=== PATIENT | male | born 1995 | race Caucasian/White ===

== ENCOUNTER 2017-05-26 23:31 | Emergency (ER) | payer BC, OTHER ==
--- NOTE | 2017-05-27 00:17 | EDPHY ---
H & P Stated Complaint: L knee pain and swelling, unknown reason Time Seen by Provider: 05/26/17 23:41 HPI/ROS: HPI The patient presents with left knee pain. This is been present for the last several hours and is getting progressively worse. He was moving into a house and was bending his knees to pick something up and had a popping sensation. He has had progressive worsening knee pain and swelling ever since. He now is unable to put pressure on the knee without severe pain. He has no prior history of knee injury. REVIEW OF SYSTEMS Constitutional: No fever, no chills. Eyes: No discharge. ENT: No sore throat. Cardiovascular: No chest pain, no palpitations. Respiratory: No cough, no shortness of breath. Gastrointestinal: No abdominal pain, no vomiting. Genitourinary: No hematuria. Musculoskeletal: No back pain. Skin: No rashes. Neurological: No headache. PMHx: Healthy Soc Hx: College student, from [place] PHYSICAL General Appearance: Alert, no distress Eyes: Pupils equal and round no pallor or injection ENT, Mouth: Mucous membranes moist Respiratory: Breathing comfortably Neurological: A&O, moves all extremities Skin: Warm and dry, no rashes Musculoskeletal: Large left-sided knee effusion with some erythema of the joint , not warm, full extension to 180, flexion to approximately 90, no tenderness of the joint Extremities: symmetrical Psychiatric: Patient is oriented X 3, there is no agitation Source: Patient Exam Limitations: No limitations - Personal History Current Tetanus/Diphtheria Vaccine: Yes Current Tetanus Diphtheria and Acellular Pertussis (TDAP): Yes - Medical/Surgical History Hx Asthma: No Hx Chronic Respiratory Disease: No Hx Diabetes: No Hx Cardiac Disease: No Hx Renal Disease: No Hx Cirrhosis: No Hx Alcoholism: No Hx HIV/AIDS: No Hx Splenectomy or Spleen Trauma: No Other PMH: DENIES - Social History Smoking Status: Never smoked Constitutional: Initial Vital Signs Temperature (C) 36.7 C 05/26/17 23:36 Heart Rate 76 05/26/17 23:36 Respiratory Rate 16 05/26/17 23:36 Blood Pressure 159/83 H 05/26/17 23:36 O2 Sat (%) 96 05/26/17 23:36 O2 Delivery Mode Room Air Allergies/Adverse Reactions: No Known Allergies Allergy (Unverified 05/26/17 23:35) Home Medications: Medication Instructions Recorded Doxycycline 100 mg Prepack#2 07/31/16 Hydrocodone/APAP 5/325 [Golf 1 - 2 tab PO Q4H PRN #10 tab 07/31/16 5/325 (RX)] Medical Decision Making - Diagnostics Imaging Results: Imaging Impressions Knee X-Ray 05/26/17 23:45 Impression: No acute osseous findings. Imaging: I viewed and interpreted images myself Procedures: Procedure: Arthrocentesis. After verbal informed consent was obtained explaining the risks including but not limited to infection and bleeding a arthrocentesis was performed on the left knee. The patient was prepped and draped in the usual sterile fashion. The joint was anesthetized with 2 mL as of lidocaine 1% with epinephrine. Approximately 35 mL of slightly bloody fluid was obtained. There were no complications. The procedure was performed by myself. Differential Diagnosis: This is a 22-year-old healthy male who presents from home with progressively worsening left knee pain over the last 1 day after an injury in which he bent his knee forward and has had pain ever since. On exam, he has a large left- sided joint effusion. Differential diagnosis includes meniscal tear, ligamentous injury, less likely fracture. In the emergency department the patient had x-ray performed which was relatively unremarkable. Arthrocentesis was performed for comfort. Fluid was not sent for analysis, I doubt gout. I suspect he may have a ligamentous injury. I will discharge him with a knee immobilizer and orthopedic follow-up., Departure - Departure Disposition: Home, Routine, Self-Care Clinical Impression: Effusion, left knee Left knee injury Qualifiers: Encounter type: initial encounter Qualified Code(s): S89.92XA - Unspecified injury of left lower leg, initial encounter Condition: Good Instructions: Knee Immobilizer (ED), Swollen Knee Joint (ED) Additional Instructions: Please use rest, ice, elevation for your knee pain. You can use crutches until your pain has improved. Keep the immobilizer on until the pain has improved as well. You can use ibuprofen 400 mg with acetaminophen 650 mg every 6 hours as needed for pain. I have given you the information for Dr. Avila the orthopedic surgeon in you can make an appointment with him in a week if your pain continues. Referrals: Mitra Avila MD [Medical Doctor] - As per Instructions
[2017-05-27 00:45] VITALS: BP 128/70; PULSE 78; RESP 14; TEMP 98.2; O2SAT 95
== END 2017-05-27 00:43 | disposition home or self-care (01) ==
PROC: 0S9D3ZZ Drainage of Left Knee Joint, Percutaneous Approach (ICD-10-PCS; principal; 2017-05-26)
DX: S89.92XA Unspecified injury of left lower leg, initial encounter (principal); X58.XXXA Exposure to other specified factors, initial encounter
CPT/HCPCS: L1830